=== PATIENT | male | born 1970 | race Caucasian/White ===

== ENCOUNTER 2018-03-20 08:56 | Emergency (ER) | payer SELFPAY ==
[2018-03-20] MEDS ORDERED: predniSONE 10 MG TAB ONE (09:37)
[2018-03-20] MEDS ORDERED: predniSONE 20 MG TAB ONE (09:37)
[2018-03-20] MEDS ORDERED: HYDROcodone/Acetaminophen 5/325 mg Tablet ONE (10:10)
--- NOTE | 2018-03-20 11:46 | RAD ---
CHEST TWO VIEWS: HISTORY: Fever. Cough. COMPARISON: None. FINDINGS: There is a nodule projecting over the right lower lung, which may reflect a prominent nipple marker. Increased peribronchovascular markings. No pneumothorax or large effusion. No acute osseous abnorm ality. Heart size at the upper limits of normal. IMPRESSION: 1. Findings suggesting an atypical viral infectious process. 2. Likely prominent nipple shadow of the right lung base. Followup could be obtained with nipple ma rkers if clinically warranted. POS: [facility]
--- NOTE | 2018-03-20 11:51 | RAD ---
TWO VIEW CHEST: INDICATIONS: Followup, nipple shadow. FINDINGS: Nipple markers are in place. The noted probable nipple shadow of the right lower chest does correspo nd to the location of the nipple marker. The chest is otherwise similar. IMPRESSION: Nipple marker does correspond to the location of the previously noted nipple shadow of the inferior r ight chest. POS: [facility]
== END 2018-03-20 11:24 | disposition home or self-care (01) ==
LOC: MADERS 08:56
DX: J18.9 Pneumonia, unspecified organism (principal); I10 Essential (primary) hypertension; F17.210 Nicotine dependence, cigarettes, uncomplicated
CPT/HCPCS: 71046; 93005; J7506; J7512; J7620

== ENCOUNTER 2018-11-22 08:58 | Emergency (ER) | payer SELFPAY ==
--- NOTE | 2018-11-22 09:51 | RAD ---
XR Chest Pa Lat STANDARD HISTORY: Cough COMPARISON: 03/20/2018 study. FINDINGS: Heart size and mediastinum are within normal limits. The lungs appear clear of any infiltra tive process. IMPRESSION: No acute changes. Stable exam.
== END 2018-11-22 11:03 | disposition home or self-care (01) ==
LOC: MADERS 08:58
DX: R09.81 Nasal congestion (principal); R05 Cough; I10 Essential (primary) hypertension; F17.210 Nicotine dependence, cigarettes, uncomplicated; Z79.899 Other long term (current) drug therapy; Z79.51 Long term (current) use of inhaled steroids
CPT/HCPCS: 71046; 87804; 94760

== ENCOUNTER 2021-07-02 12:10 | Emergency (ER) | payer SELFPAY ==
[2021-07-02] MEDS ORDERED: Lidocaine 1%/Epinephrine 1:100K 10 ML VIAL ONE (12:39)
[2021-07-02] MEDS ORDERED: traMADol HCl 50 MG TAB ONE (13:16)
== END 2021-07-02 13:54 | disposition home or self-care (01) ==
LOC: EEVIPCON 12:10 → MADERS 12:10
DX: L02.212 Cutaneous abscess of back [any part, except buttock and flank] (principal); I10 Essential (primary) hypertension; F17.210 Nicotine dependence, cigarettes, uncomplicated
CPT/HCPCS: 10060; 87070; 87205

== ENCOUNTER 2021-07-04 17:19 | Emergency (ER) | payer SELFPAY | END 2021-07-04 19:04 | disposition home or self-care (01) | LOC: MADERS 17:19 | DX: L02.212 Cutaneous abscess of back [any part, except buttock and flank] (principal); Z48.01 Encounter for change or removal of surgical wound dressing; I10 Essential (primary) hypertension; F17.210 Nicotine dependence, cigarettes, uncomplicated | CPT/HCPCS: 10061 ==

== ENCOUNTER 2021-07-11 15:51 | Emergency (ER) | payer SELFPAY ==
[~2021-07-11 15:51] MED LIST: Iopamidol 370 76% 125 ML VIAL FS ONE; Sodium Chloride 0.9% 100 ML BAG ONE
[2021-07-11 16:45] LABS: Anisocytosis SLIGHT = 6-15 cells (100X) (0-5/hpf); Band 1 % (5-11); Eosinophils 12 % (0-10); Hemoglobin 14.7 g/dL (14.0-18.0); Lymphocytes 7 % (21-51); MDiff Complete? YES; Mean Corpuscular HGB CONC 31.3 g/dL (32.0-36.0); Mean Corpuscular Hemoglobin 27.4 pg (27.0-31.0); Mean Corpuscular Volume 87.8 fL (78.0-98.0); Mean Platelet Volume 8.2 fL (7.4-10.4); Neutrophil 80 % (42-75); Platelet Count 259 thou/uL (130-400); Platelet Morphology Comment Appears Adequate; RBC Distribution Width 12.2 % (11.5-14.5); Red Blood Cell (RBC) Count 5.36 mill/uL (4.70-6.10); White Blood Cell (WBC) Count 20.7 thou/uL (4.8-10.8)
[2021-07-11 16:57] LABS: ALT (SGPT) 15 U/L (8-55); AST (SGOT) 22 U/L (5-34); Albumin 3.8 g/dL (3.5-5.0); Alkaline Phosphatase 90 U/L (40-110); Anion Gap 17 mmol/L (10-20); BUN (Urea Nitrogen) 6 mg/dL (8.9-20.6); Bilirubin, Total 0.4 mg/dL (0.2-1.2); Calc. Creatinine Clearance 0 mL/min (70-130); Calcium 8.8 mg/dL (7.8-10.44); Carbon Dioxide 23 mmol/L (22-29); Chloride 104 mmol/L (98-107); Globulin 3.2 g/dL (2.4-3.5); Glucose 99 mg/dL (70-105); Sodium 140 mmol/L (136-145)
[2021-07-11] MEDS ORDERED: Albuterol Sulfate 2.5 mg/0.5 ml Neb ONE ×2 (19:37→19:38)
[2021-07-11] MEDS ORDERED: methylPREDNISolone Sod Succ/PF 125 MG/2 ML VIAL ONE (19:39)
[2021-07-11] MEDS ORDERED: Pseudoephedrine HCl 30 MG TAB ONE (20:49)
== END 2021-07-11 22:07 | disposition home or self-care (01) ==
LOC: MADERS 15:51
DX: J20.9 Acute bronchitis, unspecified (principal); F17.210 Nicotine dependence, cigarettes, uncomplicated; I10 Essential (primary) hypertension
CPT/HCPCS: 71046; 71275; 80053; 83605; 83880; 84484; 85025; 85379; 93005; 94760; 96374; J2930; J7611; J7620; Q9967